=== PATIENT | male | born 1935 | race Caucasian/White ===

== ENCOUNTER 2019-04-10 07:26 | Day surgery (SDC) | payer OTHER, MEDICARE ==
[2019-04-08 15:02] VITALS: BMI 28.1
[2019-04-10] MEDS ORDERED: PROPOFOL 20 ML ONE (08:14)
[2019-04-10 10:15] VITALS: BP 142/85; PULSE 74; TEMP 97.6
--- NOTE | 2019-04-12 08:56 | OP ---
DATE OF OPERATION: 04/10/2019 PREOPERATIVE DIAGNOSES: 1. Right index finger mass. 2. 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 POSTOPERATIVE DIAGNOSES: 1. Right index finger mass. 2. 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 OPERATIVE PROCEDURE: 1. Right index finger mass excision. 2. Right index finger distal interphalangeal joint debridement with spur excision. SURGEON: Samantha Yap MD SURVEY QUESTIONNAIRE DESIGNER: IRENE Pablo ANESTHESIA: Local. COMPLICATIONS: None. ESTIMATED BLOOD LOSS: Minimal. INDICATIONS FOR PROCEDURE: The patient is an 84-year-old male with the above findings, indicated for operative treatment. The risks, benefits and alternatives were discussed with the patient at length and proper informed consent was obtained. DESCRIPTION OF PROCEDURE: After proper identification of the patient and correct operative site, the patient was brought to the operating room and placed supine on the table, with prominences well-padded. Local anesthesia was given. The right upper extremity was prepped and draped in the usual sterile fashion. A finger tourniquet was used. The mass was visualized at the dorsal aspect of the distal interphalangeal joint. A distally based flap of tissue was elevated by incising dorsally over the distal interphalangeal joint, elevating the flap up and excising the mass from the inside out. This appeared to be a cyst coming from the distal interphalangeal joint and was excised in whole and sent for pathological evaluation. A very large dorsal spur was noted at the extensor insertion. Taking care to leave the extensor tendon intact, the spur was excised. The joint was also debrided of synovitis and arthritis. The wound was irrigated and repaired with 5-0 fast-absorbing plain gut suture. Sterile dressings were applied. The patient was brought to the recovery room in stable condition. Abdon Rodriguez, the pathology assistant, was integral throughout the procedure. The procedure could not have been performed without a skilled operative pathology assistant. SAMANTHA YAP M.D. [id number]
--- NOTE | 2019-04-12 15:45 | PATH ---
Surgical Pathology Report Patient Name: SELAM HOOKS [facility]. Rec. #: [id number] /Age/Gender: 1935 (Age: 84) / M Account: [id number] Location: [facility] AMBULATORY Taken: 04/10/2019 Received: 04/10/2019 Reported: 04/12/2019 Physicians: Venkat Gant M.D. 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 Electronically Signed Rayne Marin M.D. Gross Description Received in formalin labeled "right index finger mass," are 2 brown soft tissue fragments measuring 0.5 x 0.2 x 0.2 cm and 0.7 x 0.4 x 0.2 cm, possibly consistent with a disrupted cyst. The specimens are submitted in toto in one cassette. 04/11/2019 [facility]04/11/2019
== END 2019-04-10 10:10 | disposition home or self-care (01) ==
LOC: FASU 07:26
PROVIDERS: ATTEND Orthopaedic Surgery Hand Surgery
PROC: 0RCW0ZZ Extirpation of Matter from Right Finger Phalangeal Joint, Open Approach (ICD-10-PCS; 2019-04-10)
PROC: 0JBJ0ZZ Excision of Right Hand Subcutaneous Tissue and Fascia, Open Approach (ICD-10-PCS; principal; 2019-04-10 09:07)
DX: D21.11 Benign neoplasm of connective and other soft tissue of right upper limb, including shoulder (principal); M19.041 Primary osteoarthritis, right hand; M65.9 Synovitis and tenosynovitis, unspecified; M25.741 Osteophyte, right hand
CPT/HCPCS: 88304-TC

== ENCOUNTER 2020-12-19 09:45 | Emergency (ER) | payer OTHER, MEDICARE ==
[2020-12-19 10:01] VITALS: BP 124/72; PULSE 62; TEMP 97.8; BMI 29.7
[2020-12-19] MEDS ORDERED: CEPHALEXIN MONOHYDRATE 500 MG CAPSULE (UD) PO ONE (10:22)
[2020-12-19] MEDS ORDERED: CEPHALEXIN MONOHYDRATE 500 MG CAPSULE (UD) ONE (10:24)
== END 2020-12-19 10:39 | disposition home or self-care (01) ==
LOC: FER 09:45
DX: L03.114 Cellulitis of left upper limb (principal)
CPT/HCPCS: 99283-25

== ENCOUNTER 2022-06-21 10:45 | Emergency (ER) | payer OTHER, MEDICARE ==
[2022-06-21 11:01] VITALS: BP 129/79; PULSE 56; RESP 18; TEMP 97.9; BMI 30.4
[2022-06-21] MEDS ORDERED: DIPHTH,PERTUSS(ACELL),TET 0.5 ML DISP.SYRIN IM ONE ×2 (11:04→11:06)
== END 2022-06-21 11:20 | disposition home or self-care (01) ==
LOC: FER 10:45
PROC: 3E0234Z Introduction of Serum, Toxoid and Vaccine into Muscle, Percutaneous Approach (ICD-10-PCS; principal; 2022-06-21)
PROC: 3E0234Z Introduction of Serum, Toxoid and Vaccine into Muscle, Percutaneous Approach (ICD-10-PCS; 2022-06-21)
DX: S51.811A Laceration without foreign body of right forearm, initial encounter (principal); W22.8XXA Striking against or struck by other objects, initial encounter
CPT/HCPCS: 90471; 90715; 99282-25

== ENCOUNTER 2022-07-03 10:47 | Emergency (ER) | payer OTHER, MEDICARE ==
[2022-07-03 11:01] VITALS: BP 147/86; PULSE 62; RESP 18; TEMP 98; BMI 28.5
== END 2022-07-03 11:20 | disposition home or self-care (01) ==
LOC: FER 10:47
DX: R23.9 Unspecified skin changes (principal); S51.812A Laceration without foreign body of left forearm, initial encounter; L23.3 Allergic contact dermatitis due to drugs in contact with skin; W26.9XXA Contact with unspecified sharp object(s), initial encounter
CPT/HCPCS: 99283-25

== ENCOUNTER 2022-09-29 09:33 | Emergency (ER) | payer OTHER, MEDICARE ==
[2022-09-29 09:50] VITALS: BP 130/69; PULSE 73; RESP 16; TEMP 98.4; BMI 29.0
== END 2022-09-29 12:05 | disposition home or self-care (01) ==
LOC: FER 09:33
DX: M25.562 Pain in left knee (principal); R22.42 Localized swelling, mass and lump, left lower limb; S80.02XA Contusion of left knee, initial encounter; W01.0XXA Fall on same level from slipping, tripping and stumbling without subsequent striking against object, initial encounter
CPT/HCPCS: 73564-TC-LT-FY; 93971-TC; 99284-25